=== PATIENT | male | born 1975 | race African-American/Black ===

== ENCOUNTER 2023-11-15 07:16 | Day surgery (SDC) | payer OTHER, SELFPAY ==
--- NOTE | 2023-10-31 13:56 | PC.NURSE ---
SPOKE WITH INTERMEDIATE REP, LEONIDAS. SHE WILL FAX PT'S PMH AND CURRENT MED LIST. DISCUSSED PT RETURNING DUE TO POOR PREP FOR THE PREVIOUS COLONOSCOPY IN AUGUST 2023. PT TO BE NPO AFTER MN. AND NO SOLID FOOD DAY BEFORE TEST.
[2023-11-01 13:32] VITALS: BMI 22.6
[2023-11-15 07:45] VITALS: BP 117/76; PULSE 67; RESP 16; TEMP 36.8; O2SAT 100
[2023-11-15] MEDS: LACTATED RINGERS 1,000 ML 150 ML IV CONT (07:52)
--- NOTE | 2023-11-15 08:27 | PM.HPGS ---
History of Present Illness History of Present Illness Consent: Risks, benefits, and alternatives have been discussed and questions answered. Patient agrees to proceed with procedure. Chief complaint: Positive Fit Test Narrative: Jesus Pinto III is a 48 year old male referred for colonoscopy. Patient is having a positive stool FIT test. Patient denies any obvious blood in his stools. Apparently stool Hemoccult was positive. Family history is significant the patient tells me his father had colon polyps. Patient presents today for colonoscopy on referral. Review of Systems Review of Systems: All systems reviewed & are unremarkable except as noted in HPI and below PMFSH Past Medical History Medical History (Updated 11/15/23 @ 08:29 by Cj Farias MD) Mandible fracture Migraine Social History Social History Smoking status: Unknown if ever smoked Alcohol intake: unknown Substance use: unknown Living arrangements: incarcerated Spiritual care concerns: No Meds Home Medications and Allergies Home Medications Medication Instructions Recorded Confirmed Type No Home Medications 09/29/23 11/15/23 History Allergies Allergy/AdvReac Type Severity Reaction Status Date / Time No Known Allergies Allergy Verified 11/15/23 07:44 Vital Signs Vital Signs - 24 hr 11/15/23 07:45 Temperature 98.3 F Pulse Rate 67 Respiratory Rate 16 Blood Pressure 117/76 Pulse Oximetry 100 Oxygen Delivery Room Air Exam Narrative: Physical exam reveals patient to be alert. Vital signs stable. HEENT exam is unremarkable. Patient is anicteric. Lungs are clear to auscultation and to percussion heart is without murmur or extra sounds. Abdomen bowel sounds are present soft nontender with no organomegaly. Digital external rectal exam normal. Assessment and Plan Assessment and plan (1) Positive FIT (fecal immunochemical test): Code(s): R19.5 - Other fecal abnormalities Status: Acute Assessment and Plan: Patient reported had positive fit test. Plan for screening colonoscopy (2) Family history of colon cancer in father: Code(s): Z80.0 - Family history of malignant neoplasm of digestive organs Status: Acute Assessment and Plan: Patient reports that his father had colon cancer. Suggest follow-up colonoscopy at 5 year intervals.
--- NOTE | 2023-11-15 08:28 | P.PNAN_ITS ---
Anes - Initial Pre Proc Eval Procedure: Operation Date: 11/15/23 09:00 Proposed Procedures p Diagnostic Colonoscopy - Cj Farias MD Date/Time: 11/15/23 08:28 Surgeon: Cj Farais MD Pre Op Diagnosis: Positive Fit Test Patient Data Age: 48 Gender: M Height: 1.87 m Weight: 80.75 kg Last Vital Signs Temp 36.8 C 11/15/23 07:45 Pulse 67 11/15/23 07:45 Resp 16 11/15/23 07:45 BP 117/76 11/15/23 07:45 Pulse Ox 100 11/15/23 07:45 O2 Del Method Room Air 11/15/23 07:45 Allergies Allergy/AdvReac Type Severity Reaction Status Date / Time No Known Allergies Allergy Verified 11/15/23 07:44 Home Medications Medication Instructions Recorded Confirmed Type No Home Medications 09/29/23 11/15/23 History Patient hx anesthesia problems: none Family hx anesthesia problems: none Results Review: All pre-operative results and documents have been reviewed as part of the pre- operative evaluation. PMFSH Past Medical History Medical History Mandible fracture Migraine Social History Social History Smoking status: Unknown if ever smoked Alcohol intake: unknown Substance use: unknown Living arrangements: incarcerated [facility] care concerns: No Anes - Eval Final PreProcedure Day of Procedure 11/15/23 08:28 Patient weight: normal Heart: regular rate and rhythm Lungs: clear to auscultation Airway: Mallampati scale class 1 Neurological: alert and oriented Last oral intake: >/= 8 hours ASA classification: II Emergent: no Anesthetic plan: proceed Anesthesia type and monitoring: general GIVS Results Review: All pre-operative results and documents have been reviewed as part of the pre- operative evaluation. Informed Consent: The patient's anesthetic plan and its attendant risks and benefits were discussed with the patient/family/POA. Questions were solicited and answers provided to the satisfaction of the patient/family/POA.
[2023-11-15 09:31] VITALS: BP 89/56; PULSE 50; RESP 16; O2SAT 100
[2023-11-15 09:41] VITALS: BP 90/62; PULSE 63; RESP 14; O2SAT 100
--- NOTE | 2023-11-15 09:44 | WPDANESPN ---
Anes - Prog Note Post-Op Date/Time: 11/15/23 09:44 Cardiovascular status: normal Respiratory status: normal Airway patency: baseline Mental status: baseline Post-Op hydration status: normal Vital Signs: Last Vital Signs Temp 36.8 C 11/15/23 07:45 Pulse 50 L 11/15/23 09:31 Resp 16 11/15/23 09:31 BP 89/56 L 11/15/23 09:31 Pulse Ox 100 11/15/23 09:31 O2 Del Method Room Air 11/15/23 09:31 Pain Score (VAS): 0 I/O: Intake & Output 11/14/23 11/15/23 11/15/23 23:59 07:59 15:59 Intake Total 400 Balance 400 Post-procedural complaints: none Patient Feedback: Patient satisfied with anesthetic care.
[2023-11-15 09:51] VITALS: BP 104/74; PULSE 60; RESP 15; O2SAT 100
== END 2023-11-15 10:14 | disposition home or self-care (01) ==
PROVIDERS: Visit Provider Internal Medicine Gastroenterology
PROC: 0DJD8ZZ Inspection of Lower Intestinal Tract, Via Natural or Artificial Opening Endoscopic (ICD-10-PCS; CPT 45378; principal; 2023-11-15 09:00)
DX: Z80.0 Family history of malignant neoplasm of digestive organs (principal); K64.8 Other hemorrhoids
CPT/HCPCS: 45378